=== PATIENT | male | born 1970 | race Caucasian/White ===

== ENCOUNTER 2021-02-05 09:40 | Emergency (ER) | payer OTHER, SELFPAY ==
[2021-02-05 09:41] VITALS: BP 114/89; PULSE 98; RESP 18; TEMP 36.2; O2SAT 99; BMI 35.9
--- NOTE | 2021-02-05 10:02 | VDLE_ITS ---
Reason For Study: pain Procedure LEFT Exam performed portable in ED. GSV is normal. This is a venous duplex using B-mode, color CFV is compressible, spontaneous, phasic, flow and spectral Doppler. competent, and demonstrates normal The exam was abbreviated due to the COVID 19 augmentation. protocol. FV is compressible, spontaneous, phasic, The exam was diagnostic. competent and demonstrates normal A preliminary report was called and/or faxed augmentation. to Dr. Franco. POP V is compressible, spontaneous, phasic, competent and demonstrates normal augmentation. T/P Trunk is compressible. PTV is compressible. Peroneal V is dilated and noncompressible. VL/Venous Duplex US, Unilateral Interpretation Summary Acute deep venous thrombosis left peroneal vein Patent and compressible left great saphenous vein Ordering Physician: Geoff Franco Performed By: David Tate RVT
--- NOTE | 2021-02-05 10:26 | EX.ED.DYSGE1 ---
HPI History of Present Illness Chief Complaint: Lower Extremity Injury Informant: patient Narrative Narrative: Patient is a 51-year-old male with a past medical history of right leg DVT who presents to the emergency department for left leg pain. He states that initially started a few weeks prior with left foot pain. It was mostly whenever he was walking. He tried switching his shoes which did not give him any relief. Over the past couple of days the pain has gone up into his calf. He felt like the leg has been mildly swollen. No overlying skin changes. He denies any chest pain or shortness of breath. No fevers or chills. He is not on any blood thinning medications. He denies any trauma or injury to the foot. He states that it is very random whenever the pain comes. It is not necessarily the first step of the day and sometimes get worse throughout the day. [facility] Medical History (Updated 02/05/21 @ 11:06 by Shawna Mistry) DVT (deep venous thrombosis) Home Medications cephalexin 500 mg PO Q6 #40 cap 07/14/17 [Rx Last Taken Unknown] hydrocodone-acetaminophen 1 - 2 tab PO Q4H PRN PRN #12 tab 07/14/17 [Rx Last Taken Unknown] apixaban 5 mg PO BID 30 Days #74 tab 02/05/21 [Rx Last Taken Unknown] Allergy/AdvReac Type Severity Reaction Status Date / Time No Known Allergies Allergy Verified 02/05/21 09:43 Social History Smoking Status: Current every day smoker tobacco type: cigarettes ROS ROS ED Constitutional Constitutional ED: Denies chills or fever(s) Eyes Eyes: Denies change in vision ENT ENT ED: Denies epistaxis or rhinorrhea Cardiovascular Cardiovascular: Denies chest pain or palpitations Respiratory/Chest Respiratory/Chest: Denies cough, dyspnea or dyspnea on exertion Gastrointestinal Gastrointestinal: Denies abdominal pain, diarrhea, nausea or vomiting Musculoskeletal Musculoskeletal: Reports other Details: Leg pain ; Denies back pain or neck pain Integumentary Denies rash Neurologic Neurologic: Denies dizziness, headache(s) or weakness EXAM Physical Exam Const Vital Signs: 02/05/21 09:41 02/05/21 11:05 Temperature 97.1 F L Temperature Source Temporal Pulse Rate 98 59 L Respiratory Rate 18 15 Blood Pressure 114/89 H 129/67 H Blood Pressure Mean 97 Pulse Ox 99 98 Positive well nourished and well developed General Appearance ED: well developed and NAD HEENT Reports normocephalic, head/scalp atraumatic and moist mucous membranes Eyes PERRL and EOMs intact bilaterally Neck supple Chest Wall inspection of chest normal Resp normal respiratory effort and clear to auscultation bilaterally Auscultation: Negative for rales, rhonchi or wheezes Cardio regular rate, regular rhythm and no murmurs GI normal to inspection, nondistended, normoactive bowel sounds and non-tender Palpation: soft; Negative for guarding or rebound tenderness present Extremity normal to inspection Extremity Narrative: Positive Homans' sign on left side. Neurovascular intact. 2+ DP pulse. No significant swelling appreciated. No overlying skin changes. General Extremety ED: Negative for edema General Extremity: Negative for edema Neuro no sensory deficits noted Sensorium / Orientation: alert Motor Exam: strength 5/5 throughout Psych mental status grossly normal Skin no rashes or lesions noted MDM MDM MDM Narrative Medical decision making narrative: Patient presents the ED for concern for DVT in the left leg. Does have a distant history of DVT in the right leg. He is not anticoagulated. On exam he does have a positive Homans' sign. No signs or symptoms of a PE. Will check ultrasound of the lower extremity. Patient's ultrasound was positive for below the knee peroneal DVT. Will place him on Eliquis. Given the fact this is his second DVT and no provoking factors he will need work-up for this. This does not need to be done emergently here today. He needs to follow-up with his PCP. I did make him a referral for 1. Patient discussed risks associated with anticoagulation. Return precautions are reviewed with him including developing significant chest pain, shortness of breath. He understands and is agreeable to plan. Discharged home in stable condition. All questions were answered. Discharge Plan Triage Chief Complaint: Lower Extremity Injury ED Provider: Geoff Franco Dx/Rx/DC Orders Clinical Impression: DVT, lower extremity, distal Instructions: DVT Dc Prescriptions: New apixaban 5 mg (74 tabs) tablets,dose pack 5 mg PO BID 30 Days Qty: 74 RF: 0 No Action hydrocodone-acetaminophen 1 TABLET tablet 1 - 2 tab PO Q4H PRN PRN (Reason: Pain) Qty: 12 RF: 0 cephalexin 500 MG capsule 500 mg PO Q6 Qty: 40 RF: 0 Primary Care Provider: Care Physician,No Primary Referrals: Noble Soler MD [STAFF PHYSICIAN] - 3-5 Days Care Physician,No Primary [Primary Care Provider] - Disposition Disposition: Home, Self Care Discharge Date/Time: 02/05/21 11:10
[2021-02-05 11:05] VITALS: BP 129/67; PULSE 59; RESP 15; O2SAT 98
== END 2021-02-05 11:10 | disposition home or self-care (01) ==
LOC: ED 11:02
PROVIDERS: Emergency Provider Emergency Medicine
DX: I82.402 Acute embolism and thrombosis of unspecified deep veins of left lower extremity (principal); F17.210 Nicotine dependence, cigarettes, uncomplicated
CPT/HCPCS: 93971; 99282

== ENCOUNTER 2024-02-11 08:53 | Emergency (ER) | payer OTHER, SELFPAY ==
[2024-02-11 08:54] VITALS: BP 146/100; PULSE 89; RESP 16; TEMP 36.4; O2SAT 97; BMI 35.9
--- NOTE | 2024-02-11 09:02 | ED.VIS.LOWEX ---
HPI History of Present Illness HPI Narrative: 54-year-old male history of prior DVTs. No longer on Eliquis. Complaining of atraumatic right foot pain. Pain occurred yesterday after he woke up from a nap. Denies any fall injury or trauma. Worse with walking. No swelling or fever. No redness. No prior right foot surgery. Chief Complaint: Lower Extremity Injury Informant: patient Occured/Mechanism Mechanism/Context: No injury and No blunt trauma Onset/Context/Timing Onset: Today and Yesterday Context: Gradual Onset Timing: Continuous Quality of Pain: Dull and Aching Current Severity: Mild Maximum Severity: Mild Associated Symptoms Associated Symptoms: Negative for Parasthesia, Weakness or Loss of Funtion Narrative Narrative: 54-year-old male history of prior DVT with atraumatic right foot pain. Prior similar symptoms: No Recent Illness/Hospitalization: No PFSH PFSH Medical History DVT (deep venous thrombosis) Home Medications ?Medication ?Instructions ?Recorded ?Last Taken ?Type cephalexin 500 mg capsule 500 mg PO Q6 #40 caps 07/14/17 Unknown Rx hydrocodone-acetaminophen 5-325mg 1 - 2 tab PO Q4H PRN PRN Pain #12 07/14/17 Unknown Rx 5mg-325mg tabs apixaban 5 mg (74 tabs) tablets in 5 mg PO BID 30 days #74 tabs 02/05/21 Unknown Rx a dose pack Allergy/AdvReac Type Severity Reaction Status Date / Time No Known Allergies Allergy Verified 02/11/24 08:55 Social History Smoking Status: Current every day smoker tobacco type: cigarettes ROS ROS ED ROS Narrative Denies recent illness. Review of Systems ROS Unobtainable: Denies due to encephalopathy Constitutional Constitutional ED: Denies chills or fever(s) Eyes Eyes: Denies blurry vision ENT ENT ED: Denies ear pain Cardiovascular Cardiovascular: Denies chest pain Respiratory/Chest Respiratory/Chest: Denies cough or dyspnea Gastrointestinal Gastrointestinal: Denies abdominal pain Genitourinary Genitourinary ED: Denies dysuria or hematuria Musculoskeletal Musculoskeletal: Denies arthralgias Integumentary Denies abscess or Abrasions Neurologic Neurologic: Denies headache(s) Psychiatric Psychiatric: Denies depression Endocrine Endocrinology: Denies polydipsia or polyphagia Hematologic/Lymphatic Hematologic/Lymphatic: Denies easy bleeding Allergic/Immunologic Allergic/Immunologic ED: Denies mouth swelling, tongue swelling or urticaria EXAM Physical Exam Narrative Exam Narrative: 54-year-old male no acute distress vital signs stable afebrile. HEENT exam unremarkable. Lungs clear. Heart regular rhythm rate about 90 no murmur. Abdomen soft nontender. Moving all 4 extremities. Neurovascularly intact. Specifically right calf nontender nonswollen. Achilles tendon intact. Normal dorsi plantarflexion of his right ankle. Normal DP pulse. Normal-appearing right foot. No swelling. No redness. No discoloration. Normal cap refill. Normal nails. Normal range of motion. He has mild tenderness to the bottom of his right foot. There is no deformity. No bruising. No puncture wounds. This may be secondary to plantar fasciitis. Otherwise exam unremarkable. Const Vital Signs: 02/11/24 08:54 Temperature 97.6 F L Temperature Source Temporal Pulse Rate 89 Respiratory Rate 16 Blood Pressure 146/100 H Blood Pressure Mean 115 Pulse Ox 97 Oxygen Delivery Method Room Air Positive well nourished and well developed; Negative for cachectic, contractures or unkempt General Appearance ED: well developed and NAD; Negative for unkempt, cachectic or contractures Nutritional Appearance: Negative for cachectic HEENT Reports moist mucous membranes normocephalic and atraumatic; Negative for trauma or tenderness Eyes PERRL General Eye ED: Negative for other Neck full ROM and supple Thyroid: tender Lymph Lymphatic: Negative for other Chest Wall inspection of chest normal and palpation of chest normal Resp normal respiratory effort, no retractions and clear to auscultation bilaterally Effort and Inspection: Negative for pain with movement Auscultation: Negative for rales, rhonchi, wheezes or diminished lung sounds Cardio regular rate, regular rhythm, S1 normal heart sound, S2 normal heart sound and no murmurs Rate: Negative for bradycardia or tachycardic Rhythm: Negative for abnormal rhythm Bruits: Negative for other GI non-tender, non-distended and no masses Inspection: Negative for abdominal distention Auscultation: normoactive bowel sounds Palpation: soft; Negative for tender or guarding Back/Spine no CVA tenderness General Back: Negative for CVA tenderness Cervical Spine: Negative for cervical spine tenderness Thoracic Spine / Upper Back: Negative for thoracic spinal tenderness Lumbar Spine / Lower Back: Negative for lumbar spinal tenderness Extremity normal to inspection and full ROM Extremity Narrative: Mild tenderness on the bottom of his right foot. Possibly plantar fasciitis. No swelling. No redness. Normal DP pulse. Normal nails. Normal range of motion with his foot and sensation. General Extremety ED: Negative for cyanosis or edema General Extremity: Negative for cyanosis or edema Neuro oriented x3, CN's II-XII intact bilaterally, moves all extremities and no sensory deficits noted Sensorium / Orientation: alert, oriented to person, oriented to place and oriented to time; Negative for orientation impaired or confused Motor Exam: strength 5/5 throughout Psych mental status grossly normal Appearance: Negative for unkempt Speech: No other Mood & Affect: Negative for anxious Skin no wounds Lesions: no lesions Rashes: no rashes Trauma: Negative for abrasion or laceration MDM MDM MDM Narrative Medical decision making narrative: 54-year-old male with atraumatic right foot pain began yesterday. Worse with walking. Clinically this may be plantar fasciitis. He has a normal foot exam otherwise other than mild tenderness in the bottom of his foot. X-ray being obtained. Repeat exam unchanged exam consistent with plantar fasciitis. Negative x-ray. History & Record Review Discussion w/independent historian: Patient Radiography Diagnostic Testing: Right foot x-ray, 3 views, interpreted by myself shows no acute abnormality. No fracture. No dislocation. No foreign body. I did go over the films with the patient. Discharge Plan Triage Chief Complaint: Lower Extremity Injury ED Provider: Eugene Otto Dx/Rx/DC Orders Clinical Impression: Acute foot pain, Plantar fasciitis of right foot Instructions: Treating Plantar Fasciitis Prescriptions: No Action hydrocodone-acetaminophen 1 TABLET tablet 1 - 2 tab PO Q4H PRN PRN (Reason: Pain) Qty: 12 0RF cephalexin 500 MG capsule 500 mg PO Q6 Qty: 40 0RF apixaban 5 mg (74 tabs) tablets,dose pack 5 mg PO BID 30 Days Qty: 74 0RF Rx Instructions: Take 2 tablets (10mg) PO BID for 7 days. Then 1 tablet (5mg) PO BID daily. Primary Care Provider: Care Physician,No Primary Referrals: Harsha Deleon DPM [Med Staff - Active Staff] - 10-14 Days if not better Care Physician,No Primary [Primary Care Provider] - Activity Restrictions/Additional Instructions: Your foot x-ray was normal. This is not a blood clot either. Most likely this is inflammation of the connective and soft tissue the bottom of your foot. Call plantar fasciitis. Ice. Rest. Anti-inflammatories like Motrin, Advil or ibuprofen 600 mg 3 times a day for the next week. Take it with food on your stomach. This should progressively get better. Follow-up if not improving. Print Language: Malawian Disposition Disposition: Home, Self Care
--- NOTE | 2024-02-11 09:05 | RAD_ITS ---
STUDY: X-RAY - RIGHT FOOT CLINICAL: Male, 54 years old. Atraumatic right stella pain TECHNIQUE: 3 view(s) of the foot. COMPARISON: None. FINDINGS: Normal talus, calcaneus, and tarsal bones. Normal visualized subtalar, talonavicular, calcaneocuboid, tarsal and tarsometatarsal articulations. Normal metatarsi. Normal metatarsophalangeal joint of the great toe. Normal tibial and fibular sesamoid bones. Normal interphalangeal joint of the great toe. Normal phalanges of the great toe. Normal second through fifth metatarsophalangeal joints. Normal interphalangeal joints and phalanges of the lesser toes. The soft tissue structures are unremarkable. RAD/Foot min 3 Views IMPRESSION: Normal x-ray examination of the foot. Electronically Signed: Shoaib Hale MD at 9:25 EDT ,
[2024-02-11 09:22] VITALS: BP 146/98; PULSE 81; RESP 18; TEMP 36.7; O2SAT 98
== END 2024-02-11 09:29 | disposition home or self-care (01) ==
LOC: ED 09:26
PROVIDERS: Emergency Provider Emergency Medicine; Visit Provider Emergency Medicine
DX: M72.2 Plantar fascial fibromatosis (principal); F17.210 Nicotine dependence, cigarettes, uncomplicated; Z86.718 Personal history of other venous thrombosis and embolism
CPT/HCPCS: 73630; 99282